=== PATIENT | female | born 1990 | race Caucasian/White ===

== ENCOUNTER 2018-03-03 07:08 | Inpatient (IN) | payer OTHER ==
--- NOTE | 2018-03-02 20:42 | PCM.LDHP ---
L&D History of Present Illness - General Date of Service: 03/03/18 Admit Problem/Dx: Admission Diagnosis/Problem Admission Diagnosis/Problem 03/02/18 20:30 27-year-old 3 para 2001 white female admitted for elective induction of labor at 40-1/7 weeks gestational age. Reasons: Increased distance from the hospital, multiparous status. Source of Information: Patient History Limitations: Reports: No Limitations - History of Present Illness Introduction:: Sara is a 27-year-old 3 para 2002 white female at 40-1/7 weeks gestational age with an ILA of 03/02/2018 who is admitted for elective induction of labor. Plan is to undergo artificial rupture membranes induction with Pitocin augmentation as indicated. On his last evaluation clinic her cervix is 3 cm, 85% effaced, very soft, -3 station and mid position. The procedure of induction of labor, its risks, benefits, returns of care including allowing onset of natural labor all discussed with patient. She appears to understand, wishes to proceed. CRM SPECIALIST history: Patient is 3 para 2001. First day of her last menstrual period was 05/16/2017 which is relatively certain. Her has been supported by ultrasounds. Her care until 26 weeks was in [facility]. At this time she transferred her care to [place] as her physician was leaving the hospital system there. Her previous deliveries include the following : 1. Male born 10/29/2016 at 40 weeks gestational age after 4 hours of labor -8 lbs. 13 oz.[place], [place]-child's name is Jimbo 2. Female infant born 11/20/2017 at 41 weeks gestational age after 10 hours of labor8 lbs. 5 oz.[place], [place]-child's name is Carolina course: First visit at our clinic was on 11/24/2017. She is seen on a regular basis throughout the rest of the . Her fundal height growth was appropriate. Her weight was approximately 165. Weight at the time of her last appointment on 02/23/2018 was 179. Vital signs and stable throughout the last part of her care. Laboratory testing shows a hemoglobin at first visit at 13.9 with platelets which were normal. Her blood is A+ with a negative antibody screen. Rubella titer shows immunity and RPR is nonreactive. Hepatitis B surface antigen and HIV assays were both negative. Chlamydia and gonorrhea were both negative. TSH was normal 1.304 mU/L. Second trimester testing showed a 1 hour glucose of 109. Allergies: None Medications: 1. vitamins 1 daily 2. Vitamin D tablets dose unknown daily. Past medical history: 1. Normal spontaneous fifth vaginal delivery 2. Past surgical history: 1. [place] teeth extraction Family history: Patient's mother is alive and well at age 58. Father is alive with high blood pressure, diabetes on medication and is very well controlled at age 56. One younger brother with Asperger's syndrome. Maternal grandfather is age is unknown. Causes unknown. Maternal grandmother is from some type of cancer at age 59. Paternal grand father is at age 60 from a brain tumor. Paternal grandmother is secondary to heart disease at age 65. There is family history of cancer. No family history of bleeding, clotting disorders or -related issues. Mother did have some pulmonary emboli at age 45 for reasons unknown. Social history: Patient is . She lives in [facility]. 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 She does not use any significant most alcohol, drugs or tobacco. 's name is Gilberto. Review of systems: Review of systems: In general patient has no complaints. Baby has been active and patient is at only a few [place] contractions Skin: Negative Lungs: No infectious symptoms or shortness of breath Cardiovascular: No chest pain or exercise intolerance Breasts: No lumps, changes in size, pain, dimpling, discharge or axillary or supraclavicular concerns. Some changes have been noted. GI: Negative : Changes associated with . Musculoskeletal: Negative other than occasional edema. Neurological: Negative In general the patient is well-developed, well-nourished, pleasant female of stated age in no acute distress. On last evaluation clinic her blood pressure is 119/69. Weight was 179 pounds. heart rate is 131. Skin is warm dry without lesions. HEENT, neck and back within normal limits. Lungs are clear with good breath sounds in all lung chamorro. Cardiovascular exam shows regular and rhythm without murmurs. Abdomen is protuberant with last fundal height at 40.5 cm. Baby in vertex presentation by Roberto Carlos maneuvers. Genital exam shows cervix to be 3 cm dilated, 85% effaced, very soft, -3, mid position. Extremities and neurological exam are grossly within normal limits. H&P Review of Systems - Review of Systems: Review Of Systems: See Below L&D Exam - Exam Exam: See Below Problem List Initiated/Reviewed/Updated: Yes Assessment/Plan Comment:: 1. Term intrauterine at 40-1/7 weeks upon admission for elective artificial rupture membranes/Pitocin induction of labor. Procedure, risks, benefits, alternatives of care and follow-up were discussed in detail patient. She appears to understand, wishes to proceed. 2. Group B strep screen is negative. 3. Patient plans to breast-feed 4. Group B strep screen is negative 5. Shilpi given on 11/24/2017 6. Patient is okay with epidural in labor and delivery 7. Quad screen was negative on 11/24/2017 8. T dap was performed on 12/27/2017 in [place] 9. RPR is nonreactive Plan: 1. Artificial rupture membranes/Pitocin induction of labor on the a.m. of 2018. 2. Routine labor care 3. Encourage breast-feeding 4. Epidural when necessary 5. CBC upon admission along with an RPR. 6. Anticipate normal spontaneous vaginal delivery
[2018-03-03] MEDS ORDERED: Sodium Chloride 0.9% 10 ML Syringe FLUSH PRN (07:28)
[2018-03-03] MEDS ORDERED: Oxytocin/Lactated Ringers 10 UNIT/1,000 ML BAG IV SCH (07:30)
[2018-03-03] MEDS: Lactated Ringers 1,000 ML IV SCH ×2 (11:23→14:04)
[2018-03-03] MEDS ORDERED: diphenhydrAMINE 50 MG/ML SDV IVPUSH PRN (13:28)
[2018-03-03] MEDS ORDERED: Ondansetron 4 MG/2 ML SDV IVPUSH PRN ×2 (13:28→16:38)
[2018-03-03] MEDS ORDERED: ePHEDrine 50 MG/ML SDV IVPUSH PRN (13:28)
[2018-03-03] MEDS ORDERED: fentaNYL 100 MCG/2 ML SDV EPIDUR PRN (13:28)
[2018-03-03] MEDS ORDERED: fentaNYL/Bupivacaine-NS 2 MCG/ML-0.125%/PF 100 ML Bag EP SCH (13:30)
--- NOTE | 2018-03-03 14:16 | PCM.PREANE ---
Preanesthetic Assessment - Anesthesia/Transfusion/Family Hx Anesthesia History: Prior Anesthesia Without Reaction Family History of Anesthesia Reaction: No Transfusion History: No Prior Transfusion(s) - Review of Systems General: No Symptoms Pulmonary: No Symptoms Cardiovascular: No Symptoms Gastrointestinal: No Symptoms Neurological: No Symptoms Other: Reports: None - Physical Assessment O2 Sat by Pulse Oximetry: 98 Respiratory Rate: 16 Vital Signs: Last Vital Signs Temp 36.7 C 03/03/18 07:28 Pulse 96 03/03/18 07:28 Resp 16 03/03/18 07:28 BP 121/86 03/03/18 07:28 Pulse Ox 98 03/03/18 07:28 Height: 1.65 m Weight: 81.783 kg ASA Class: 5E Emergency Airway Class: Mallampati = 1 Dentition: Reports: Normal Dentition Thyro-Mental Finger Breadths: 3 Mouth Opening Finger Breadths: 3 ROM/Head Extension: Full Lungs: Clear to Auscultation, Normal Respiratory Effort Cardiovascular: Regular Rate, Regular Rhythm - Lab Values: Laboratory Last Values WBC 9.23 K/mm3 (3.98-10.04) 03/03/18 07:46 RBC 3.84 M/mm3 (3.98-5.22) L 03/03/18 07:46 Hgb 11.4 gm/L (11.2-15.7) 03/03/18 07:46 Hct 34.9 % (34.1-44.9) 03/03/18 07:46 MCV 90.9 fl (79.4-94.8) 03/03/18 07:46 MCH 29.7 pg (25.6-32.2) 03/03/18 07:46 MCHC 32.7 g/dl (32.2-35.5) 03/03/18 07:46 RDW Std Deviation 43.6 fL (36.4-46.3) 03/03/18 07:46 Plt Count 334 K/mm3 (182-369) 03/03/18 07:46 MPV 9.8 fl (9.4-12.3) 03/03/18 07:46 Neut % (Auto) 67.3 % (34.0-71.1) 03/03/18 07:46 Lymph % (Auto) 22.6 % (19.3-51.7) 03/03/18 07:46 [place] % (Auto) 8.5 % (4.7-12.5) 03/03/18 07:46 Eos % (Auto) 1.3 (0.7-5.8) 03/03/18 07:46 Baso % (Auto) 0.1 % (0.1-1.2) 03/03/18 07:46 Neut # (Auto) 6.21 K/mm3 (1.56-6.13) H 03/03/18 07:46 Lymph # (Auto) 2.09 K/mm3 (1.18-3.74) 03/03/18 07:46 [place] # (Auto) 0.78 K/mm3 (0.24-0.36) H 03/03/18 07:46 Eos # (Auto) 0.12 K/mm3 (0.04-0.36) 03/03/18 07:46 Baso # (Auto) 0.01 K/mm3 (0.01-0.08) 03/03/18 07:46 - Allergies Allergies/Adverse Reactions: Allergies Allergy/AdvReac Type Severity Reaction Status Date / Time No Known Allergies Allergy Verified 03/03/18 07:26 - Acknowledgements Anesthesia Type Planned: Epidural Pt an Appropriate Candidate for the Planned Anesthesia: Yes Alternatives and Risks of Anesthesia Discussed w Pt/Guardian: Yes Pt/Guardian Understands and Agrees with Anesthesia Plan: Yes PreAnesthesia Questionnaire - Past Health History Medical/Surgical History: Denies Medical/Surgical History - SUBSTANCE USE Smoking Status *Q: Never Smoker Tobacco Use Within Last Twelve Months: No Second Hand Smoke Exposure: No Recreational Drug Use History: No - HOME MEDS Home Medications: Home Meds Vit No.78/Iron/Fa [Prenatabs FA] 1 each PO DAILY 03/03/18 [History] Vit D3/Folic Acid/B2/B6/B12 [Folgard Tablet] 1 each PO DAILY 03/03/18 [History] - CURRENT (IN HOUSE) MEDS Current Meds: Current Medications Diphenhydramine HCl (Benadryl) 25 mg IVPUSH Q6H PRN PRN Reason: Pruritis Ephedrine Sulfate (Ephedrine Sulfate) 5 mg IVPUSH ASDIRECTED PRN PRN Reason: Hypotension Fentanyl (Sublimaze) 100 mcg EPIDUR ONETIME PRN PRN Reason: Pain Last Admin: 03/03/18 14:11 Dose: 100 mcg Fentanyl/Bupivacaine HCl (Uebhezon-Zvdyw-Ds 2 Mcg/Ml-0.125%) 100 ml EP ASDIRECTED WARREN Last Admin: 03/03/18 14:11 Dose: 100 ml Lactated Ringer's (Ringers, Lactated) 1,000 mls @ 40 mls/hr IV ASDIRECTED WARREN Last Admin: 03/03/18 14:04 Dose: 500 mls/hr Oxytocin/Lactated Ringer's (Pitocin In Lr 10 Units/1,000 Ml) 10 unit in 1,000 mls @ 12 mls/hr IV TITRATE WARREN; Protocol Last Titration: 03/03/18 13:28 Dose: 0 munits/min, 0 mls/hr Ondansetron HCl (Zofran) 4 mg IVPUSH ONETIME PRN PRN Reason: Nausea/Vomiting Sodium Chloride (Saline Flush) 10 ml FLUSH ASDIRECTED PRN PRN Reason: Keep Vein Open Last Admin: 03/03/18 11:22 Dose: 10 ml
[2018-03-03] MEDS ORDERED: Docusate Sodium 100 MG Cap PO PRN (15:07)
[2018-03-03] MEDS ORDERED: Lanolin 100% Cream 7 GM Tube TOP PRN (15:07)
[2018-03-03] MEDS ORDERED: Witch Hazel Medicated Pads 100/Jar TOP PRN (15:07)
[2018-03-03] MEDS ORDERED: Acetaminophen 325 MG Tab PO PRN (15:07)
[2018-03-03] MEDS ORDERED: Benzocaine/Menthol 20%-0.5% Spray 56 GM Canister TOP PRN (15:07)
--- NOTE | 2018-03-03 15:11 | PCM.SN ---
- Free Text/Narrative Note: Sara is a 27-year-old 3 para 3003 who is admitted electively on the morning of 03/03/2018 for induction of labor. As she is at 40-1/7 weeks gestational age with an ILA of 03/02/2018. Induction initially was with artificial rupture membranes with resultant clear amniotic fluid. Approximately 3 hours after rupture membranes patient was administered IV Pitocin for augmentation of her labor. She underwent epidural analgesia. She progressed rapidly and was completely dilated at approximately 1420 hrs. she pushed approximate 4 contractions and delivered a viable, 4660 g (10 lbs. 4 oz.), 21-1/ 2 inches long female with Apgars of 8 and 9 at 1436 hrs. The baby delivered in a right occiput anterior position. Posterior arm delivered without problems as did both shoulders. The baby was placed on mom's abdomen, nose mouth were bulb suctioned. The cord was allowed to pulsate for approximately 2 minutes and was clamped 2 and cut by the baby's father. End. Pitocin was started IV per protocol to increase uterine tone and decreased likelihood of bleeding. The perineum was noted to have a first-degree laceration and a single figure-of- eight suture of 3-0 Monocryl was used to repair. Labor epidural analgesia/ anesthesia was used for closure of the small laceration. Uterus is found to be firm and just below the umbilicus. Minimal bleeding was encountered. The placenta delivered in a Christian presentation, appeared intact and complete and was discarded per patient desire. Estimated blood loss was 300 mL's. Patient plans to breast-feed. Condition: Good.
[2018-03-03] MEDS ORDERED: Methylergonovine 0.2 MG/1 ML Amp ONE (15:17)
[2018-03-03] MEDS ORDERED: Methylergonovine 0.2 MG/1 ML Amp IM STA (15:17)
[2018-03-03] MEDS ORDERED: Misoprostol 200 MCG Tab ONE (15:20)
[2018-03-03] MEDS: Misoprostol 200 MCG Tab PO SCH ×3 (15:22→23:23)
[2018-03-03] MEDS ORDERED: Oxytocin/Lactated Ringers 10 UNIT/1,000 ML BAG IV STA (15:38)
--- NOTE | 2018-03-03 16:33 | PCM.SN ---
- Free Text/Narrative Note: I was called back to labor and delivery after delivery for increased uterine bleeding. Patient was getting Pitocin via IV. She passed a large clot and estimated blood loss was approximately 750 mL. Uterus was massaged. Bimanual exam showed about another 200 mL of blood. Since that time patient has had significantly decreased amount of bleeding. She was given Methergine 0.2 mg IM and received her first dose of Cytotec 400 g orally. Overall estimated blood loss is about 1200 mL. Patient had some pressures which were low and with positioning and fluid hydration these blood pressures have bounced back to normal. Her pulse is 91. She's had some lightheadedness and has had 2 episodes of nausea with emesis. At this time her blood pressure is normal, pulse is high normal. Patient is somewhat pale. She is no longer nauseated having thrown up 2. Uterus is nice and firm at 2 fingerbreadths below the umbilicus. Minimal bleeding occurring at this time. Assessment: 1. uterine atony with resultant blood loss. Estimated total blood loss processing 1200 mL with delivery and loss. Now the uterus is firm and there is minimal blood loss. Patient has received IV Pitocin, IM Methergine 0.2 mg and first dose of Cytotec 400 g orally. 2. Nauseaintermittent with emesis 2. Feels generally fairly good at this time. 3. Labile blood pressures with some low blood pressures noted. Suspected relative to the bleeding. With fluid hydration they are now within normal limits. Pulse is 90. Plan: 1. Patient has had a type and screen done earlier today 2. We'll obtain a stat CBC 3. Continue to monitor uterine tone and continue Cytotec at 400 g every 4 hours times total of 3 doses 4. Monitor blood pressure, using ephedrine if necessary. Maintain adequate fluid hydration.
[2018-03-03] MEDS: Ibuprofen 600 MG Tab PO PRN (18:09)
[2018-03-03] MEDS ORDERED: EPINEPHrine 1:10,000 1 MG/10 ML Syringe ONE (22:00)
[2018-03-03] MEDS ORDERED: Bupivacaine 0.25% 10 ML SDV ONE (22:00)
[2018-03-03] MEDS ORDERED: Lidocaine 1.5% with EPINEPHrine 1:200,000 5 ML Amp ONE (22:00)
[2018-03-04] MEDS: Misoprostol 200 MCG Tab PO SCH ×2 (04:00→08:04)
[2018-03-04] MEDS: Ibuprofen 600 MG Tab PO PRN ×2 (04:32→08:09)
[2018-03-04] MEDS ORDERED: Prenatal Multivitamin with Calcium/Folic Acid/Iron Tab PO SCH (09:00)
--- NOTE | 2018-03-04 09:41 | PCM48HPAN ---
Post Anesthesia Note - EVALUATION WITHIN 48HRS OF ANESTHETIC Vital Signs in Normal Range: Yes Patient Participated in Evaluation: Yes Respiratory Function Stable: Yes Airway Patent: Yes Cardiovascular Function Stable: Yes Hydration Status Stable: Yes Pain Control Satisfactory: Yes Nausea and Vomiting Control Satisfactory: Yes Mental Status Recovered: Yes - COMMENTS/OBSERVATIONS Free Text/Narrative:: Patient denies any symptoms of PDPH, back pain, and any residual numbness or tingling to LE. Doing well, resting in bed.
--- NOTE | 2018-03-04 12:17 | PCM.DCSUM1 ---
Discharge Summary - Hospital Course Free Text/Narrative:: Sara is a 27-year-old 3 para 3003 who is admitted electively on the morning of 03/03/2018 for induction of labor. As she is at 40-1/7 weeks gestational age with an ILA of 03/02/2018. Induction initially was with artificial rupture membranes with resultant clear amniotic fluid. Approximately 3 hours after rupture membranes patient was administered IV Pitocin for augmentation of her labor. She underwent epidural analgesia. She progressed rapidly and was completely dilated at approximately 1420 hrs. she pushed approximate 4 contractions and delivered a viable, 4660 g (10 lbs. 4 oz.), 21-1/ 2 inches long female infant with Apgars of 8 and 9 at 1436 hrs. The baby delivered in a right occiput anterior position. Posterior arm delivered without problems as did both shoulders. The baby was placed on mom's abdomen, nose mouth were bulb suctioned. The cord was allowed to pulsate for approximately 2 minutes and was clamped 2 and cut by the baby's father. End. Pitocin was started IV per protocol to increase uterine tone and decreased likelihood of bleeding. The perineum was noted to have a first-degree laceration and a single figure-of- eight suture of 3-0 Monocryl was used to repair. Labor epidural analgesia/ anesthesia was used for closure of the small laceration. Uterus is found to be firm and just below the umbilicus. Minimal bleeding was encountered. The placenta delivered in a Christian presentation, appeared intact and complete and was discarded per patient desire. Estimated blood loss was 300 mL's. Patient plans to breast-feed. the patient had a significant amount of bleeding and this viable loss after delivery was approximately 4429-9160 mL over the next several hours. The uterus was evacuated of clot and the placenta was felt to liver and intact. With Methergine, Pitocin and Cytotec therapy leading eventually slowed. Follow- up CBC on the AM of discharge showed hemoglobin 8.7. Patient was stable with no further significant bleeding, was voiding well and is ambulating without problems. She is desiring discharge home. Diagnosis: Stroke: No - Discharge Data Discharge Date: 03/04/18 Discharge Disposition: Home, Self-Care 01 Condition: Good - Patient Instructions Diet: Regular Diet as Tolerated (Increase calcium and iron as recommended) Activity: As Tolerated (No intercourse tampons until bleeding resolves) Driving: Do Not Drive (2 days) Showering/Bathing: May Shower (May take) Notify Provider of: Fever, Increased Pain, Swelling and Redness, Nausea and/or Vomiting - Discharge Plan Prescriptions/Med Rec: Ferrous Sulfate 325 mg PO BID #100 tablet Home Medications: Home Meds Vit No.78/Iron/Fa [Prenatabs FA] 1 each PO DAILY 03/03/18 [History] Vit D3/Folic Acid/B2/B6/B12 [Folgard Tablet] 1 each PO DAILY 03/03/18 [History] Acetaminophen [Tylenol] 650 mg PO Q4H PRN tablet 03/04/18 [Rx] Ferrous Sulfate 325 mg PO BID #100 tablet 03/04/18 [Rx] Ibuprofen [Motrin] 600 mg PO Q4H PRN tablet 03/04/18 [Rx] Referrals: Gunnar Berumen MD [Primary Care Provider] - (Return to clinicDr. Berumen4 weeks.) - Discharge Summary/Plan Comment DC Time >30 min.: No Discharge Summary/Plan Comment: Discharge instructions: 1. Discharge home 2. Diet, activity and follow-up discussed with patient. Recommend nursing diet with increased calories and calcium. 3. Precautions given concern increased pain, bleeding, temperature, signs/ symptoms of DVT/PE. 4. Medications per home medication was printed, discussed with and given to the patient. 5. Return to clinic-Dr. Berumen[facility] in 4 weeks. Diagnosis: Term -delivered Condition: Good - Patient Data Vitals - Most Recent: Last Vital Signs Temp 37.1 C 03/04/18 11:53 Pulse 86 03/04/18 11:53 Resp 16 03/04/18 11:53 BP 106/57 L 03/04/18 11:53 Pulse Ox 97 03/04/18 11:53 Weight - Most Recent: 81.783 kg I&O - Last 24 hours: Intake & Output 03/03/18 03/04/18 03/04/18 22:59 06:59 14:59 Intake Total 4500 0 Output Total 3254 550 450 Balance 1246 -550 -450 Lab Results - Last 24 hrs: Laboratory Results - last 24 hr 03/03/18 03/03/18 03/03/18 Range/Units 16:42 16:42 20:14 WBC 21.05 H (3.98-10.04) K/mm3 RBC 3.63 L (3.98-5.22) M/mm3 Hgb 10.6 L 9.2 L (11.2-15.7) gm/L Hct 33.1 L (34.1-44.9) % MCV 91.2 (79.4-94.8) fl MCH 29.2 (25.6-32.2) pg MCHC 32.0 L (32.2-35.5) g/dl RDW Std Deviation 43.2 (36.4-46.3) fL Plt Count 318 (182-369) K/mm3 MPV 9.8 (9.4-12.3) fl Neut % (Auto) 87.6 H (34.0-71.1) % Lymph % (Auto) 7.2 L (19.3-51.7) % [place] % (Auto) 5.0 (4.7-12.5) % Eos % (Auto) 0 L (0.7-5.8) Baso % (Auto) 0.0 L (0.1-1.2) % Neut # (Auto) 18.41 H (1.56-6.13) K/mm3 Lymph # (Auto) 1.51 (1.18-3.74) K/mm3 [place] # (Auto) 1.06 H (0.24-0.36) K/mm3 Eos # (Auto) 0.01 L (0.04-0.36) K/mm3 Baso # (Auto) 0.01 (0.01-0.08) K/mm3 Manual Slide Review Abnormal smear Blood Type A POSITIVE Gel Antibody Screen Negative 03/04/18 Range/Units 05:54 WBC 12.46 H (3.98-10.04) K/mm3 RBC 2.96 L (3.98-5.22) M/mm3 Hgb 8.7 L (11.2-15.7) gm/L Hct 27.2 L (34.1-44.9) % MCV 91.9 (79.4-94.8) fl MCH 29.4 (25.6-32.2) pg MCHC 32.0 L (32.2-35.5) g/dl RDW Std Deviation 43.0 (36.4-46.3) fL Plt Count 308 (182-369) K/mm3 MPV 10.5 (9.4-12.3) fl Neut % (Auto) 72.9 H (34.0-71.1) % Lymph % (Auto) 18.5 L (19.3-51.7) % [place] % (Auto) 7.1 (4.7-12.5) % Eos % (Auto) 1.2 (0.7-5.8) Baso % (Auto) 0.1 (0.1-1.2) % Neut # (Auto) 9.09 H (1.56-6.13) K/mm3 Lymph # (Auto) 2.30 (1.18-3.74) K/mm3 [place] # (Auto) 0.88 H (0.24-0.36) K/mm3 Eos # (Auto) 0.15 (0.04-0.36) K/mm3 Baso # (Auto) 0.01 (0.01-0.08) K/mm3 Manual Slide Review Blood Type Gel Antibody Screen Med Orders - Current: Current Medications Acetaminophen (Tylenol) 650 mg PO Q4H PRN PRN Reason: mild pain or fever Benzocaine/Menthol (Dermoplast Pain Relief Adams) 0 gm TOP ASDIRECTED PRN PRN Reason: Perineal Comfort Measure Docusate Sodium (Colace) 100 mg PO BID PRN PRN Reason: Constipation Last Admin: 03/04/18 04:33 Dose: 100 mg Emollient Ointment (Lansinoh Hpa) 0 gm TOP ASDIRECTED PRN PRN Reason: Sore Nipples Ibuprofen (Motrin) 600 mg PO Q4H PRN PRN Reason: Mild pain or fever Last Admin: 03/04/18 08:09 Dose: 600 mg Ondansetron HCl (Zofran) 4 mg IVPUSH Q4H PRN PRN Reason: Nausea Last Admin: 03/03/18 16:45 Dose: 4 mg Prenat Multivit/Ware/Iron/Folic Ac ( Plus Iron) 1 each PO DAILY WARREN Last Admin: 03/04/18 08:05 Dose: 1 each Witch Crystal (Tucks) 1 pad TOP ASDIRECTED PRN PRN Reason: Hemorrhoid pain Discontinued Medications Bupivacaine HCl (Sensorcaine-Mpf 0.25%) 10 ml .ROUTE .STK-MED ONE Stop: 03/03/18 22:01 Diphenhydramine HCl (Benadryl) 25 mg IVPUSH Q6H PRN PRN Reason: Pruritis Ephedrine Sulfate (Ephedrine Sulfate) 5 mg IVPUSH ASDIRECTED PRN PRN Reason: Hypotension Epinephrine HCl (Epinephrine 1:10,000) 1 mg .ROUTE .STK-MED ONE Stop: 03/03/18 22:01 Fentanyl (Sublimaze) 100 mcg EPIDUR ONETIME PRN PRN Reason: Pain Last Admin: 03/03/18 14:11 Dose: 100 mcg Fentanyl/Bupivacaine HCl (Xszakwfh-Mtumu-Yr 2 Mcg/Ml-0.125%) 100 ml EP ASDIRECTED WARREN Last Admin: 03/03/18 14:11 Dose: 100 ml Lactated Ringer's (Ringers, Lactated) 1,000 mls @ 40 mls/hr IV ASDIRECTED WARREN Last Infusion: 03/03/18 17:00 Dose: Infused Oxytocin/Lactated Ringer's (Pitocin In Lr 10 Units/1,000 Ml) 10 unit in 1,000 mls @ 12 mls/hr IV TITRATE WARREN; Protocol Last Titration: 03/03/18 13:28 Dose: 0 munits/min, 0 mls/hr Oxytocin/Lactated Ringer's (Pitocin In Lr 10 Units/1,000 Ml) 10 unit in 1,000 mls @ 200 mls/hr IV NOW STA; Protocol Stop: 03/03/18 20:37 Last Admin: 03/03/18 15:44 Dose: 500 mls/hr Lidocaine/Epinephrine (Xylocaine-Mpf 1.5% W/Epinephrine 1:200,000) 5 ml .ROUTE .STK-MED ONE Stop: 03/03/18 22:01 Methylergonovine Maleate (Methergine) Confirm Administered Dose 0.2 mg .ROUTE .STK-MED ONE Stop: 03/03/18 15:18 Last Admin: 03/03/18 15:17 Dose: 0.2 mg Methylergonovine Maleate (Methergine) 0.2 mg IM NOW STA Stop: 03/03/18 15:18 Last Admin: 03/03/18 18:10 Dose: 0.2 mg Misoprostol (Cytotec) 400 mcg PO Q4H [facility] Stop: 03/03/18 23:31 Last Admin: 03/03/18 23:23 Dose: 400 mcg Misoprostol (Cytotec) Confirm Administered Dose 400 mcg .ROUTE .[facility]-MED ONE Stop: 03/03/18 15:21 Last Admin: 03/03/18 15:24 Dose: Not Given Misoprostol (Cytotec) 400 mcg PO Q4HR [facility] Last Admin: 03/04/18 08:04 Dose: 400 mcg Ondansetron HCl (Zofran) 4 mg IVPUSH ONETIME PRN PRN Reason: Nausea/Vomiting Sodium Chloride (Saline Flush) 10 ml FLUSH ASDIRECTED PRN PRN Reason: Keep Vein Open Last Admin: 03/03/18 11:22 Dose: 10 ml
== END 2018-03-04 15:30 | disposition home or self-care (01) | DRG 806 ==
LOC: JD.OB 07:08 → OBSVTOIN 14:36 → JD.OB 14:36
PROVIDERS: ADMIT Obstetrics & Gynecology; ATTEND Obstetrics & Gynecology
PROC: 10E0XZZ Delivery of Products of Conception, External Approach (ICD-10-PCS; principal; 2018-03-03)
PROC: 0HQ9XZZ Repair Perineum Skin, External Approach (ICD-10-PCS; principal; 2018-03-03)
PROC: 10907ZC Drainage of Amniotic Fluid, Therapeutic from Products of Conception, Via Natural or Artificial Opening (ICD-10-PCS; principal; 2018-03-03)
PROC: 0UC97ZZ Extirpation of Matter from Uterus, Via Natural or Artificial Opening (ICD-10-PCS; 2018-03-03)
PROC: 3E0R3BZ Introduction of Anesthetic Agent into Spinal Canal, Percutaneous Approach (ICD-10-PCS; 2018-03-03)
PROC: 00HU33Z Insertion of Infusion Device into Spinal Canal, Percutaneous Approach (ICD-10-PCS; 2018-03-03)
DX: O70.0 First degree perineal laceration during delivery (principal); O72.1 Other immediate postpartum hemorrhage; Z37.0 Single live birth; Z3A.40 40 weeks gestation of pregnancy; O90.89 Other complications of the puerperium, not elsewhere classified; R11.0 Nausea; R03.1 Nonspecific low blood-pressure reading
CPT/HCPCS: 01967; 36415; 51701; 51702; 59025; 59409; 85018; 85025; 86850; 86900; 86901; A9270-GY; J0171; J2210; J2405; J2590; J3010; J3490; J7120